=== PATIENT | female | born 1970 | race Caucasian/White ===

== ENCOUNTER 2020-02-27 11:14 | Outpatient (CLI) | payer OTHER ==
[~2020-02-27 11:14] MED LIST: DOLOGEN CAPLET1 TAB PO
== END 2020-02-27 11:19 | disposition home or self-care (01) ==
LOC: SONOGRAMA 11:14
PROVIDERS: ATTEND Pathology Anatomic Pathology & Clinical Pathology
DX: E04.1 Nontoxic single thyroid nodule (principal)